=== PATIENT | male | born 1985 | race Caucasian/White ===

== ENCOUNTER 2017-04-21 12:52 | Emergency (ER) | payer OTHER ==
--- NOTE | 2017-04-21 13:59 | DIAGNOSTIC IMAGING REPORT ---
PROCEDURE: XR RIBS UNILAT W/PA CHEST-LT INDICATION: TRAUMA/INJURY TECHNIQUE: PA chest and five views of the left ribs. COMPARISON: Left rib x-ray 04/15/2017. FINDINGS: No evidence of rib fracture or suspicious osseous lesion. Lungs are clear without pneumothorax. Heart size, mediastinum and pulmonary vessels normal. IMPRESSION: 1. Negative chest and left ribs.
--- NOTE | 2017-04-21 14:48 | ED CLINICAL REPORT ---
Clinical Report - Physicians/Mid Levels [facility] [address] [place] [address] 04/21/2017 12:53 Patient: NOLAN FINK Time Seen: 1301; initial patient contact. Arrived- By private vehicle. Historian- patient. HISTORY OF PRESENT ILLNESS Location of injuries- (left chest wall). Chief Complaint: Injury to CHEST. The injury occurred about 2 weeks ago. (tran). Fell (off tube while being pulled). The patient complains of moderate pain. No blow to the head, neck pain, loss of consciousness or seizure. Not dazed. states he played volleyball and fell on that side as well as mowed the lawn since then. Got worse last night while in bed. REVIEW OF SYSTEMS No numbness, depression, difficulty breathing, nausea or fever. No vomiting. All systems otherwise negative, except as recorded above. PAST HISTORY See nurses notes. Tetanus immunization status is up-to-date. Additional Surgeries: no known surgeries. Medications: Haldol Injection. Allergies: None. PHYSICAL EXAM Appearance: Alert. Oriented X3. No acute distress. Head: Head non-tender. No swelling of head. No Smith's sign or raccoon eyes. Eyes: Pupils equal, round and reactive to light. Pupillary exam: Right pupil round and reactive to light directly and consensually and with accommodation. Left pupil: 3mm, round and reactive to light directly and consensually and with accommodation. EOM intact. ENT: No hemotympanum. No malocclusion. Neck: Painless ROM. Non-tender. No vertebral tenderness. CVS: Heart sounds normal. Pulses normal. Respiratory: Breath sounds normal. No rales, wheezes, rhonchi or crepitus. (left lateral chest wall tenderness. no overlying skin changes. skin intact.). Abdomen: No visible injury. Soft and nontender. Bowel sounds normal. Back: No tenderness. ROM normal. Skin: Skin intact. Skin warm and dry. Normal skin color. Normal skin turgor. Extremities: Normal inspection. Pelvis stable. Extremities atraumatic. No lower extremity edema. LABS, X-RAYS, AND EKG Sternum / Ribs X-rays: (PROCEDURE: XR RIBS UNILAT W/PA CHEST-LT INDICATION: TRAUMA/INJURY TECHNIQUE: PA chest and five views of the left ribs. COMPARISON: Left rib x-ray 04/15/2017. FINDINGS: No evidence of rib fracture or suspicious osseous lesion. Lungs are clear without pneumothorax. Heart size, mediastinum and pulmonary vessels normal. IMPRESSION: 1. Negative chest and left ribs.). The X-rays were independently viewed by me and interpreted by the radiologist. The X-rays were discussed with the radiologist (via pacs). PROGRESS AND PROCEDURES Course of Care: patient with exacerbation of subacute left chest wall injury. At this time differential diagnosis includes rib fracture versus contusion versus pneumothorax. Patient is agreeable to the treatment and plan. Pain medication as been offered. Patient workup negative. No signs of pneumothorax or rib fracture. Discussed the patient pain medication prescription here in the emergency department. Recommended patient follow up with primary care for further refills of pain medication. Discussed the patient is workup here in the emergency department including diagnosis, home care, follow-up, and return precautions. All questions have been answered. The patient expressed understanding of these instructions and was agreeable to them. Disposition: Discharged. Condition: good. CLINICAL IMPRESSION Single contusion. (left lateral ribs). INSTRUCTIONS Warnings: GENERAL WARNINGS: Return or contact your physician immediately if your condition worsens or changes unexpectedly, if not improving as expected, or if other problems arise. SPECIFICALLY, return if you develop weakness, numbness, tingling, pain or incontinence. difficulty breathing or other concerns. Your Current Medications: CONTINUE TAKING THE FOLLOWING MEDICATIONS: Haldol Injection. Prescription Medications: Zofran (orally disintegrating tablets) 4 mg: take 1 orally every 8 hours as needed for nausea and vomiting. Dispense ten (10). No refill. Substitution is permissible. Motrin 800 mg tablets: take 1 tablet orally every 6 hours as needed for pain, stiffness or swelling. Dispense thirty (30). No refill. Substitution is permissible. (take with food) Percocet 5 mg/325 mg: take 1 tablet orally every 6 hours as needed for pain. Dispense twelve (12). No refill. Substitution is permissible. Follow-up: Return to the emergency department as needed. Follow up with your doctor in three days. Reason for referral: recheck today's concerns. Summary of care provided to patient via paper. Screening today revealed the patient's blood pressure to be in the normal range. The patient should follow up with a primary care provider for blood pressure management. Understanding of the discharge instructions verbalized by patient. (Electronically signed by Steven Harrison Dr. 04/23/2017 7:46)
--- NOTE | 2017-04-21 14:48 | ED NURSING NOTES ---
Clinical Report - Nurses [facility] [address] [place] [address] 04/21/2017 12:53 Patient: NOLAN FINK TRIAGE Triage time 13:01. Acuity: LEVEL 4. Chief Complaint: SPORTS INJURY and (Left rib pain). Alert. WILLARD COMA SCORE: Willard Coma Scale: 15- eyes open spontaneously (4); best verbal response- oriented x 4 (5); best motor response- obeys commands (6). --13:04 Aneta Reid R.N. 13:01 04/21/17. BP: 137/86. HR: 75. RR: 18. O2 saturation: 97%. Temp: 98.9 F. Pain level now 8/10. --13:04 Aneta Reid R.N. Weight: 87.5 kg stated. Height/Length: 76 inches Per Patient. BMI: 23.5. --13:03 Aneta Reid R.N. Medications Haldol Injection. --13:03 Aneta Reid R.N. Allergies None. --13:03 Aneta Reid R.N. History Arrived by private vehicle. Historian: patient. Accompanied by friend. Location of injuries: chest wall. This occurred (about 2 weeks ago). ( patient reports increasing pain and shortness of breath). 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 PAST MEDICAL HX: Tetanus status: up-to-date. SOCIAL HX: Heavy tobacco smoker (cigarette)- 1 pack per day. Occasional alcohol use. No drug use. FALL RISK ASSESSMENT: Fall risk assessment completed. No fall risk identified. NUTRITIONAL RISK ASSESSMENT: The nutritional risk assessment revealed no deficiencies. FUNCTIONAL ASSESSMENT: Functional assessment: no impairments noted. LEARNING NEEDS ASSESSMENT: The learning needs assessment revealed no barriers. SKIN INTEGRITY ASSESSMENT: Skin integrity risk assessment completed. No skin integrity risk identified. --13:04 Aneta Reid R.N. ADDITIONAL SURGERIES: no known surgeries. Interventions ID band on patient. To room. --13:04 Aneta Reid R.N. PHYSICAL ASSESSMENT 13:06 04/21/17. Ambulatory to room. GENERAL / NEURO / PSYCH: Alert. Oriented X 4. RESPIRATORY: Respirations not labored. Chest wall: located in the middle and left chest. CVS: Pulses within normal limits. Capillary refill less than 2 seconds. GI / : Abdomen soft. EXTREMITIES: Neuro-vascular status intact to the extremity. SKIN: Skin is warm and dry. --13:06 Aneta Reid R.N. NURSING PROGRESS NOTES Two patient identifiers checked. Call light placed in reach. Side rails up x 1. Bed placed in lowest position. Brakes of bed on. Patient ready for evaluation- chart flagged. --13:06 Aneta Reid R.N. Cold pack applied. --13:06 Aneta Reid R.N. 13:30 04/21/2017 Zofran ODT (Ondansetron) PO Oral Suspension 4 mg given. Allergies verified and confirmed 5 rights. --13:30 Aneta Reid R.N. 13:30 04/21/2017 Percocet (Oxycodone-Acetaminophen) PO 5/325 mg Tablets 1 tab given. Allergies verified, confirmed 5 rights and sedative warning given to the patient. --13:30 Aneta Reid R.N. 13:33 04/21/17. Patient transported to radiology with tech. --13:33 Aneta Reid R.N. 13:50. Reassessment after medication administered. He is resting quietly. --14:58 Aneta Reid R.N. 14:30. ED physician notified. ( Patient wants to leave to go smoke redirected to room.). --14:58 Aneta Reid R.N. DISPOSITION / DISCHARGE Departure time: 1455. ( patient refused discharge vital signs). No learning barriers present. Discharge instructions provided and reviewed with the patient. Reviewed medication(s) information. Prescription(s) given to the patient. Patient verbalized understanding. Written instructions provided in Lebanese. The patient was discharged home and accompanied by destaticizer feeder. He left the Emergency Department ambulatory and via private vehicle. Document Control Assistant driving. --15:00 Aneta Reid R.N. Locked/Released at 04/30/2017 6:41 by Aneta Reid R.N.
--- NOTE | 2017-04-21 14:48 | ED NURSING NOTES ---
Clinical Report - Nurses [facility] [address] [place] [address] 04/21/2017 12:53 Patient: NOLAN FINK TRIAGE Triage time 13:01. Acuity: LEVEL 4. Chief Complaint: SPORTS INJURY and (Left rib pain). Alert. WILLARD COMA SCORE: Willard Coma Scale: 15- eyes open spontaneously (4); best verbal response- oriented x 4 (5); best motor response- obeys commands (6). --13:04 Aneta Reid R.N. 13:01 04/21/17. BP: 137/86. HR: 75. RR: 18. O2 saturation: 97%. Temp: 98.9 F. Pain level now 8/10. --13:04 Aneta Reid R.N. Weight: 87.5 kg stated. Height/Length: 76 inches Per Patient. BMI: 23.5. --13:03 Aneta Reid R.N. Medications Haldol Injection. --13:03 Aneta Reid R.N. Allergies None. --13:03 Aneta Reid R.N. History Arrived by private vehicle. Historian: patient. Accompanied by friend. Location of injuries: chest wall. This occurred (about 2 weeks ago). ( patient reports increasing pain and shortness of breath). 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 PAST MEDICAL HX: Tetanus status: up-to-date. SOCIAL HX: Heavy tobacco smoker (cigarette)- 1 pack per day. Occasional alcohol use. No drug use. FALL RISK ASSESSMENT: Fall risk assessment completed. No fall risk identified. NUTRITIONAL RISK ASSESSMENT: The nutritional risk assessment revealed no deficiencies. FUNCTIONAL ASSESSMENT: Functional assessment: no impairments noted. LEARNING NEEDS ASSESSMENT: The learning needs assessment revealed no barriers. SKIN INTEGRITY ASSESSMENT: Skin integrity risk assessment completed. No skin integrity risk identified. --13:04 Aneta Reid R.N. ADDITIONAL SURGERIES: no known surgeries. Interventions ID band on patient. To room. --13:04 Aneta Reid R.N. PHYSICAL ASSESSMENT 13:06 04/21/17. Ambulatory to room. GENERAL / NEURO / PSYCH: Alert. Oriented X 4. RESPIRATORY: Respirations not labored. Chest wall: located in the middle and left chest. CVS: Pulses within normal limits. Capillary refill less than 2 seconds. GI / : Abdomen soft. EXTREMITIES: Neuro-vascular status intact to the extremity. SKIN: Skin is warm and dry. --13:06 Aneta Reid R.N. NURSING PROGRESS NOTES Two patient identifiers checked. Call light placed in reach. Side rails up x 1. Bed placed in lowest position. Brakes of bed on. Patient ready for evaluation- chart flagged. --13:06 Aneta Reid R.N. Cold pack applied. --13:06 Aneta Reid R.N. 13:30 04/21/2017 Zofran ODT (Ondansetron) PO Oral Suspension 4 mg given. Allergies verified and confirmed 5 rights. --13:30 Aneta Reid R.N. 13:30 04/21/2017 Percocet (Oxycodone-Acetaminophen) PO 5/325 mg Tablets 1 tab given. Allergies verified, confirmed 5 rights and sedative warning given to the patient. --13:30 Aneta Reid R.N. 13:33 04/21/17. Patient transported to radiology with tech. --13:33 Aneta Reid R.N. 13:50. Reassessment after medication administered. He is resting quietly. --14:58 Aneta Reid R.N. 14:30. ED physician notified. ( Patient wants to leave to go smoke redirected to room.). --14:58 Aneta Reid R.N. DISPOSITION / DISCHARGE Departure time: 1455. ( patient refused discharge vital signs). No learning barriers present. Discharge instructions provided and reviewed with the patient. Reviewed medication(s) information. Prescription(s) given to the patient. Patient verbalized understanding. Written instructions provided in [place]orese. The patient was discharged home and accompanied by wellness specialist. He left the Emergency Department ambulatory and via private vehicle. Bulwark Carpenter driving. --15:00 Aneta Reid R.N. Locked/Released at 04/30/2017 6:41 by Aneta Reid R.N.
--- NOTE | 2017-04-21 14:48 | ED ORDER SUMMARY ---
..... Patient: NOLAN FINK OrderSheet [facility] VisitID: [id number] [place] [address] 31y, M Registration Date/Time: 04/21/2017 ORDER SHEET Weight: 87.5 kg (stated) Allergies: None GENERAL ORDERS: Ribs Unilat w PA Chest Left Urgent (13:22 04/21/2017 Arian Corona) (Ack 13:29 PWeiler ER Tech1) (14:22 PWeiler ER Tech1) MEDICATION ORDERS: Zofran ODT PO 4 mg (NOW) (13:23 04/21/2017 Arian Corona) (Ack 13:25 TJayne R.N.) (13:30 TJayne R.N.) Percocet PO 5/325 mg (HIGH ALERT MEDICATION, NOW) (13:23 04/21/2017 Arian Corona) (Ack 13:25 TJayne R.N.) (13:30 TJayne R.N.) IV FLUIDS: ORDER SHEET NOTES: [Electronically signed by Steven Harrison Dr. (07:46 04/23/2017)] [Electronically signed by Aneta Reid R.N. (06:41 04/30/2017)] [Electronically locked/signed by Aneta Reid R.N. (06:41 04/30/2017)]
--- NOTE | 2017-04-21 14:48 | ED ORDER SUMMARY ---
..... Patient: NOLAN FINK OrderSheet [facility] VisitID: [id number] [place] [address] 31y, M Registration Date/Time: 04/21/2017 ORDER SHEET Weight: 87.5 kg (stated) Allergies: None GENERAL ORDERS: Ribs Unilat w PA Chest Left Urgent (13:22 04/21/2017 Arian Corona) (Ack 13:29 PWeiler ER Tech1) (14:22 PWeiler ER Tech1) MEDICATION ORDERS: Zofran ODT PO 4 mg (NOW) (13:23 04/21/2017 Arian Corona) (Ack 13:25 TJayne R.N.) (13:30 TJayne R.N.) Percocet PO 5/325 mg (HIGH ALERT MEDICATION, NOW) (13:23 04/21/2017 Arian Corona) (Ack 13:25 TJayne R.N.) (13:30 TJayne R.N.) IV FLUIDS: ORDER SHEET NOTES: [Electronically signed by Steven Harrison Dr. (07:46 04/23/2017)] [Electronically signed by Aneta Reid R.N. (06:41 04/30/2017)] [Electronically locked/signed by Aneta Reid R.N. (06:41 04/30/2017)]
--- NOTE | 2017-04-30 06:42 | ED MED RECONCILIATION SUMMARY ---
Patient: NOLAN FINK Medication Reconciliation Report [facility] VisitID: [id number] [place] [address] 31y, M Registration Date/Time: 04/21/2017 Weight: 87.5 kg Height/Length: 76 in. BMI: 23.5 ALLERGIES: None The patient's Home Medications are listed below: CONTINUE TAKING THE FOLLOWING MEDICATIONS: Haldol Injection The source(s) of the original Home Medication information: Not obtained. The following Medications were given to the patient in the Emergency Department: Zofran ODT [PO] PO 4 mg, administered: 04/21/2017 1:30:00 PM Percocet [PO] PO 1 tab, administered: 04/21/2017 1:30:00 PM The following Medications were prescribed to the patient: Zofran (orally disintegrating tablets) 4 mg: take 1 orally every 8 hours as needed for nausea and vomiting. Dispense ten (10). No refill. Substitution is permissible. -- Steven Harrison Dr. Motrin 800 mg tablets: take 1 tablet orally every 6 hours as needed for pain, stiffness or swelling. Dispense thirty (30). No refill. Substitution is permissible.(take with food) -- Steven Harrison Dr. Percocet 5 mg/325 mg: take 1 tablet orally every 6 hours as needed for pain. Dispense twelve (12). No refill. Substitution is permissible. -- Steven Harrison Dr.
--- NOTE | 2017-04-30 06:42 | ED MAR SUMMARY ---
..... Medication Administration Record [facility] [address] [place] [address] Patient: NOLAN FINK Visit ID: [id number] 31y, M Weight: 87.5 kg Height/Length: 76 in BMI: 23.5 ALLERGIES: None Given 13:04/21/2017 Aneta Reid R.N. Medication Administered: ZOFRAN ODT [PO] (ONDANSETRON), Dose: 4 mg Oral Suspension PO. Medication Ordered: Zofran ODT PO 4 mg (NOW). Given 13:04/21/2017 Aneta Reid R.N. Medication Administered: PERCOCET [PO] (OXYCODONE-ACETAMINOPHEN), Dose: 1 tab 5/325 mg Tablets PO. Medication Ordered: Percocet PO 5/325 mg (HIGH ALERT MEDICATION, NOW).
--- NOTE | 2017-04-30 06:42 | ED MAR SUMMARY ---
..... Medication Administration Record [facility] [address] [place] [address] Patient: NOLAN FINK Visit ID: [id number] 31y, M Weight: 87.5 kg Height/Length: 76 in BMI: 23.5 ALLERGIES: None Given 13:04/21/2017 Aneta Reid R.N. Medication Administered: ZOFRAN ODT [PO] (ONDANSETRON), Dose: 4 mg Oral Suspension PO. Medication Ordered: Zofran ODT PO 4 mg (NOW). Given 13:04/21/2017 Aneta Reid R.N. Medication Administered: PERCOCET [PO] (OXYCODONE-ACETAMINOPHEN), Dose: 1 tab 5/325 mg Tablets PO. Medication Ordered: Percocet PO 5/325 mg (HIGH ALERT MEDICATION, NOW).
--- NOTE | 2017-04-30 06:42 | ED MED RECONCILIATION SUMMARY ---
Patient: NOLAN FINK Medication Reconciliation Report [facility] VisitID: [id number] [place] [address] 31y, M Registration Date/Time: 04/21/2017 Weight: 87.5 kg Height/Length: 76 in. BMI: 23.5 ALLERGIES: None The patient's Home Medications are listed below: CONTINUE TAKING THE FOLLOWING MEDICATIONS: Haldol Injection The source(s) of the original Home Medication information: Not obtained. The following Medications were given to the patient in the Emergency Department: Zofran ODT [PO] PO 4 mg, administered: 04/21/2017 1:30:00 PM Percocet [PO] PO 1 tab, administered: 04/21/2017 1:30:00 PM The following Medications were prescribed to the patient: Zofran (orally disintegrating tablets) 4 mg: take 1 orally every 8 hours as needed for nausea and vomiting. Dispense ten (10). No refill. Substitution is permissible. -- Steven Harrison Dr. Motrin 800 mg tablets: take 1 tablet orally every 6 hours as needed for pain, stiffness or swelling. Dispense thirty (30). No refill. Substitution is permissible.(take with food) -- Steven Harrison Dr. Percocet 5 mg/325 mg: take 1 tablet orally every 6 hours as needed for pain. Dispense twelve (12). No refill. Substitution is permissible. -- Steven Harrison Dr.
--- NOTE | 2017-04-30 06:42 | ED DISCHARGE INSTRUCTIONS ---
Patient: NOLAN FINK General Instructions [facility] VisitID: [id number] [place] [address] 31y, M Registration Date/Time: 04/21/2017 Single contusion. (left lateral ribs). INSTRUCTIONS Warnings: GENERAL WARNINGS: Return or contact your physician immediately if your condition worsens or changes unexpectedly, if not improving as expected, or if other problems arise. SPECIFICALLY, return if you develop weakness, numbness, tingling, pain or incontinence. difficulty breathing or other concerns. Your Current Medications: CONTINUE TAKING THE FOLLOWING MEDICATIONS: Haldol Injection. Prescription Medications: Zofran (orally disintegrating tablets) 4 mg: take 1 orally every 8 hours as needed for nausea and vomiting. Dispense ten (10). No refill. Substitution is permissible. Motrin 800 mg tablets: take 1 tablet orally every 6 hours as needed for pain, stiffness or swelling. Dispense thirty (30). No refill. Substitution is permissible. (take with food) Percocet 5 mg/325 mg: take 1 tablet orally every 6 hours as needed for pain. Dispense twelve (12). No refill. Substitution is permissible. Follow-up: Return to the emergency department as needed. Follow up with your doctor in three days. Reason for referral: recheck today's concerns. Summary of care provided to patient via paper. Screening today revealed the patient's blood pressure to be in the normal range. The patient should follow up with a primary care provider for blood pressure management. Understanding of the discharge instructions verbalized by patient. ADDITIONAL INFORMATION Chest Contusion Acontusion is a bruise to the skin, muscle or ribs. It may cause pain, tenderness, swelling and a purplish discoloration. Contusions take a few days to a few weeks to heal. Home Care: Rest. You should not be doing any heavy lifting or strenuous exertion, or any activity that causes pain. You may use acetaminophen (Tylenol) or ibuprofen (Motrin, Advil) to control pain, unless another pain medicine was prescribed. [ NOTE: If you have chronic liver or kidney disease or ever had a stomach ulcer or GI bleeding, talk with your doctor before using these medicines.] Follow Up with your doctor during the next week or as directed. Get Prompt Medical Attention if any of the following occur: Shortness of breath Increasing chest pain with breathing Dizziness, weakness or fainting New or worsening of abdominal pain Fever of 100.4F (38C) or higher, or as directed by your healthcare provider Ondansetron Oral disintegrating tablet What is this medicine? ONDANSETRON (on REBECA se elizabet) is used to treat nausea and vomiting caused by chemotherapy. It is also used to prevent or treat nausea and vomiting after surgery. How should I use this medicine? These tablets are made to dissolve in the mouth. Do not try to push the tablet through the foil backing. With dry hands, peel away the foil backing and gently remove the tablet. Place the tablet in the mouth and allow it to dissolve, then swallow. While you may take these tablets with water, it is not necessary to do so. Talk to your industrial waste treatment technician regarding the use of this medicine in children. Special care may be needed. What side effects may I notice from receiving this medicine? Side effects that you should report to your doctor or health career services assistant as soon as possible: allergic reactions like skin rash, itching or hives, swelling of the face, lips, or tongue breathing problems dizziness fast or irregular heartbeat feeling faint or lightheaded, falls fever and chills swelling of the hands and feet tightness in the chest Side effects that usually do not require medical attention (report to your doctor or health career services assistant if they continue or are bothersome): constipation or diarrhea headache What may interact with this medicine? Do not take this medicine with any of the following medications: -apomorphine -cisapride -dofetilide -dronedarone -pimozide -thioridazine -ziprasidone This medicine may also interact with the following medications: -carbamazepine -phenytoin -rifampicin -tramadol -other medicines that prolong the QT interval (cause an abnormal heart rhythm) What if I miss a dose? If you miss a dose, take it as soon as you can. If it is almost time for your next dose, take only that dose. Do not take double or extra doses. Where should I keep my medicine? Keep out of the reach of children. Store between 2 and 30 degrees C (36 and 86 degrees F). Throw away any unused medicine after the expiration date. What should I tell my health care provider before I take this medicine? They need to know if you have any of these conditions: heart disease history of irregular heartbeat liver disease low levels of magnesium or potassium in the blood an unusual or allergic reaction to ondansetron, granisetron, other medicines, foods, dyes, or preservatives or trying to get breast-feeding What should I watch for while using this medicine? Check with your doctor or health career services assistant as soon as you can if you have any sign of an allergic reaction. Ibuprofen Oral tablet What is this medicine? IBUPROFEN (eye BYOO proe fen) is a non-steroidal anti-inflammatory drug (NSAID). It is used for dental pain, fever, headaches or migraines, osteoarthritis, rheumatoid arthritis, or painful monthly periods. It can also relieve minor aches and pains caused by a cold, flu, or sore throat. How should I use this medicine? Take this medicine by mouth with a glass of water. Follow the directions on the prescription label. Take this medicine with food if your stomach gets upset. Try to not lie down for at least 10 minutes after you take the medicine. Take your medicine at regular intervals. Do not take your medicine more often than directed. A special MedGuide will be given to you by the pharmacist with each prescription and refill. Be sure to read this information carefully each time. Talk to your industrial waste treatment technician regarding the use of this medicine in children. Special care may be needed. What side effects may I notice from receiving this medicine? Side effects that you should report to your doctor or health career services assistant as soon as possible: allergic reactions like skin rash, itching or hives, swelling of the face, lips, or tongue black or bloody stools, blood in the urine or in vomit breathing problems changes in vision chest pain general ill feeling or flu-like symptoms nausea or vomiting redness, blistering, peeling or loosening of the skin, including inside the mouth slurred speech or weakness on one side of the body stomach pain unexplained weight gain or swelling unusually weak or tired yellowing of eyes or skin Side effects that usually do not require medical attention (report to your doctor or health career services assistant if they continue or are bothersome): constipation or diarrhea dizziness gas or heartburn stomach upset What may interact with this medicine? Do not take this medicine with any of the following medications: cidofovir ketorolac methotrexate pemetrexed This medicine may also interact with the following medications: alcohol aspirin diuretics lithium other drugs for inflammation like prednisone warfarin What if I miss a dose? If you miss a dose, take it as soon as you can. If it is almost time for your next dose, take only that dose. Do not take double or extra doses. Where should I keep my medicine? Keep out of the reach of children. Store at room temperature between 15 and 30 degrees C (59 and 86 degrees F). Keep container tightly closed. Throw away any unused medicine after the expiration date. What should I tell my health care provider before I take this medicine? They need to know if you have any of these conditions: asthma cigarette smoker drink more than 3 alcohol containing drinks a day heart disease or circulation problems such as heart failure or leg edema (fluid retention) high blood pressure kidney disease liver disease stomach bleeding or ulcers an unusual or allergic reaction to ibuprofen, aspirin, other NSAIDS, other medicines, foods, dyes, or preservatives or trying to get breast-feeding What should I watch for while using this medicine? Tell your doctor or healthcare professional if your symptoms do not start to get better or if they get worse. This medicine does not prevent heart attack or stroke. In fact, this medicine may increase the chance of a heart attack or stroke. The chance may increase with longer use of this medicine and in people who have heart disease. If you take aspirin to prevent heart attack or stroke, talk with your doctor or health career services assistant. Do not take other medicines that contain aspirin, ibuprofen, or naproxen with this medicine. Side effects such as stomach upset, nausea, or ulcers may be more likely to occur. Many medicines available without a prescription should not be taken with this medicine. This medicine can cause ulcers and bleeding in the stomach and intestines at any time during treatment. Ulcers and bleeding can happen without warning symptoms and can cause . To reduce your risk, do not smoke cigarettes or drink alcohol while you are taking this medicine. You may get drowsy or dizzy. Do not drive, use machinery, or do anything that needs mental alertness until you know how this medicine affects you. Do not stand or sit up quickly, especially if you are an older patient. This reduces the risk of dizzy or fainting spells. This medicine can cause you to bleed more easily. Try to avoid damage to your teeth and gums when you brush or floss your teeth. Oxycodone Hydrochloride, Acetaminophen Oral tablet What is this medicine? ACETAMINOPHEN; OXYCODONE (a set a ROXANNE barbie fen; ox i KOE done) is a pain reliever. It is used to treat mild to moderate pain. How should I use this medicine? Take this medicine by mouth with a full glass of water. Follow the directions on the prescription label. Take your medicine at regular intervals. Do not take your medicine more often than directed. Talk to your industrial waste treatment technician regarding the use of this medicine in children. Special care may be needed. Patients over 65 years old may have a stronger reaction and need a smaller dose. What side effects may I notice from receiving this medicine? Side effects that you should report to your doctor or health career services assistant as soon as possible: allergic reactions like skin rash, itching or hives, swelling of the face, lips, or tongue breathing difficulties, wheezing confusion light headedness or fainting spells severe stomach pain yellowing of the skin or the whites of the eyes Side effects that usually do not require medical attention (report to your doctor or health career services assistant if they continue or are bothersome): dizziness drowsiness nausea vomiting What may interact with this medicine? alcohol antihistamines barbiturates like amobarbital, butalbital, butabarbital, methohexital, pentobarbital, phenobarbital, thiopental, and secobarbital benztropine drugs for bladder problems like solifenacin, trospium, oxybutynin, tolterodine, hyoscyamine, and methscopolamine drugs for breathing problems like ipratropium and tiotropium drugs for certain stomach or intestine problems like propantheline, homatropine methylbromide, glycopyrrolate, atropine, belladonna, and dicyclomine general anesthetics like etomidate, ketamine, nitrous oxide, propofol, desflurane, enflurane, halothane, isoflurane, and sevoflurane medicines for depression, anxiety, or psychotic disturbances medicines for sleep muscle relaxants naltrexone narcotic medicines (opiates) for pain phenothiazines like perphenazine, thioridazine, chlorpromazine, mesoridazine, fluphenazine, prochlorperazine, promazine, and trifluoperazine scopolamine tramadol trihexyphenidyl What if I miss a dose? If you miss a dose, take it as soon as you can. If it is almost time for your next dose, take only that dose. Do not take double or extra doses. Where should I keep my medicine? Keep out of the reach of children. This medicine can be abused. Keep your medicine in a safe place to protect it from theft. Do not share this medicine with anyone. Selling or giving away this medicine is dangerous and against the law. Store at room temperature between 20 and 25 degrees C (68 and 77 degrees F). Keep container tightly closed. Protect from light. This medicine may cause accidental overdose and if it is taken by other adults, children, or pets. Flush any unused medicine down the toilet to reduce the chance of harm. Do not use the medicine after the expiration date. What should I tell my health care provider before I take this medicine? They need to know if you have any of these conditions: brain tumor Crohn's disease, inflammatory bowel disease, or ulcerative colitis drink more than 3 alcohol containing drinks per day drug abuse or addiction head injury heart or circulation problems kidney disease or problems going to the bathroom liver disease lung disease, asthma, or breathing problems an unusual or allergic reaction to acetaminophen, oxycodone, other opioid analgesics, other medicines, foods, dyes, or preservatives or trying to get breast-feeding What should I watch for while using this medicine? Tell your doctor or health career services assistant if your pain does not go away, if it gets worse, or if you have new or a different type of pain. You may develop tolerance to the medicine. Tolerance means that you will need a higher dose of the medication for pain relief. Tolerance is normal and is expected if you take this medicine for a long time. Do not suddenly stop taking your medicine because you may develop a severe reaction. Your body becomes used to the medicine. This does NOT mean you are addicted. Addiction is a behavior related to getting and using a drug for a non-medical reason. If you have pain, you have a medical reason to take pain medicine. Your doctor will tell you how much medicine to take. If your doctor wants you to stop the medicine, the dose will be slowly lowered over time to avoid any side effects. You may get drowsy or dizzy. Do not drive, use machinery, or do anything that needs mental alertness until you know how this medicine affects you. Do not stand or sit up quickly, especially if you are an older patient. This reduces the risk of dizzy or fainting spells. Alcohol may interfere with the effect of this medicine. Avoid alcoholic drinks. There are different types of narcotic medicines (opiates) for pain. If you take more than one type at the same time, you may have more side effects. Give your health care provider a list of all medicines you use. Your doctor will tell you how much medicine to take. Do not take more medicine than directed. Call emergency for help if you have problems breathing. The medicine will cause constipation. Try to have a bowel movement at least every 2 to 3 days. If you do not have a bowel movement for 3 days, call your doctor or health career services assistant. Do not take Tylenol (acetaminophen) or medicines that have acetaminophen with this medicine. Too much acetaminophen can be very dangerous. Many nonprescription medicines contain acetaminophen. Always read the labels carefully to avoid taking more acetaminophen. You have been given the following additional information: Chest Wall Contusion Ondansetron Oral disintegrating tablet Ibuprofen Oral tablet Oxycodone Hydrochloride, Acetaminophen Oral tablet (Electronically signed by Steven Harrison Dr. 04/23/2017 7:46)
== END 2017-04-21 14:55 | disposition home or self-care (01) ==
LOC: ED SRH 12:52
DX: S20.212A Contusion of left front wall of thorax, initial encounter (principal); W16.132A Fall into natural body of water striking side causing other injury, initial encounter; Y93.16 Activity, rowing, canoeing, kayaking, rafting and tubing; Y99.8 Other external cause status; Y92.828 Other wilderness area as the place of occurrence of the external cause